=== PATIENT | female | born 1930 | race Caucasian/White ===

== ENCOUNTER → 2017-04-20 | Day surgery (SDC) | payer BC, OTHER ==
--- NOTE | 2017-04-19 08:11 | History and Physical ---
History & Physical Date Apr 19, 2017. Chief Complaint choking History of Present Illness The patient is a 86 year old female with complaints of recurrent choking episodes x 10 years Additional History Hepatic Disease: No Endocrine Disorder: No Kidney Disease: No Hypertension: Yes Heart Disease: No Bleeding Tendencies: No Infectious Diseases: No Allergies Uncoded Allergies: ENVIROMENTAL (Allergy, Intermediate, itchy eyes and nose, 03/15/15) Home Medications Scheduled Aspirin (Aspirin), 325 MG PO BID Celecoxib (Celebrex), 200 MG PO BID Nebivolol Hcl (Bystolic), 5 MG PO QAM Olmesartan/Hctz (Benicar Hct 20/12.5), 1 TAB PO DAILY Physical Examination Skin: warm/dry, no rash Eyes: normal inspection, EOMI, sclerae normal ENT: + pertinent finding (2 large cysts, left epigottis and left base of tongue ) Head: normocephalic, atraumatic Neck: supple, no adenopathy, trachea midline Respiratory/Chest: lungs clear, normal breath sounds, no respiratory distress Cardiovascular: regular rate, rhythm, no edema, no murmur Abdomen / GI: normal bowel sounds, non tender Back: normal inspection Extremities: normal inspection, normal range of motion Diagnosis large hypopharynx cysts Plan of Treatment direct laryngoscopy, excision
[2017-04-19 09:56] VITALS: BMI 31.0
--- NOTE | 2017-04-19 10:21 | PAT Medication Instructions ---
Service Date Apr 19, 2017. Current Home Medication List Aspirin (Aspirin Ec), 81 MG PO QAM Fluticasone Propionate (Nasal) (Flonase Allergy Relief), 2 SPRAYS RADHA BID Nebivolol Hcl (Bystolic), 5 MG PO QPM Olmesartan/Hctz (Benicar Hct 20/12.5), 1 TAB PO QAM Omeprazole (Prilosec), 20 MG PO PRN Medication Instructions For Your Scheduled Surgery - Hold the following medications the morning of surgery: Olmesartan/Hctz (Benicar Hct 20/12.5), 1 TAB PO QAM - Take the following medications the morning of surgery with a sip of water OTHERWISE NOTHING TO EAT OR DRINK AFTER MIDNIGHT: Aspirin (Aspirin Ec), 81 MG PO QAM Omeprazole (Prilosec), 20 MG PO PRN Fluticasone Propionate (Nasal) (Flonase Allergy Relief), 2 SPRAYS RADHA BID - Take the following medications as scheduled the night before surgery: Nebivolol Hcl (Bystolic), 5 MG PO QPM Fluticasone Propionate (Nasal) (Flonase Allergy Relief), 2 SPRAYS RADHA BID If you have any questions please call us at [phone] or [phone] or [phone]
[2017-04-19 11:50] LABS: BASO % 0.6 %; BASO ABS # 0.05 K/uL (0-0.2); COMPLETE YES; EOS % 2.4 %; HEMATOCRIT 37.1 % (37-47); IG% 0.2 %; LYMPH % 25.9 %; LYMPH ABS # 2.16 K/uL (1.2-3.4); MEAN CELL VOLUME 93.2 fL (80-100); MEAN CORPUSCULAR HEMOGLOBIN 30.7 pg (25-34); MEAN CORPUSCULAR HGB CONC 32.9 g/dl (32-36); MONO % 10.4 %; NEUT % 60.5 %; PLATELET COUNT 284 K/uL (130-400); RED BLOOD COUNT 3.98 M/uL (4.2-5.4); WHITE BLOOD COUNT 8.35 K/uL (4.8-10.8)
[2017-04-19 11:59] LABS: BUN/CREATININE RATIO 16.5 (10-20); CREATININE 1.1 mg/dl (0.60-1.20); POTASSIUM 4.3 mmol/L (3.5-5.1)
[~2017-04-20] VITALS: Ht 157.5 cm; Wt 78.4 kg
[~2017-04-20] MED LIST: ASPI81TA28 PO; ATROPINE SULFATE 0.1 MG/ML 5ML SYR IV PRN; BNC/20125 PO; BYS/5 PO; DEXAMETHASONE SOD INJ 4 MG/ML VIAL ONE; EpHEDrine SULFATE INJ 50 MG/ML AMP IV PRN; EpINEphrine HCL INJ 1 MG/ML 5ML SYRINGE ONE; FENTANYL CITRATE INJ 50 MCG/1 ML 2 ML VIAL IV PRN; FENTANYL CITRATE INJ 50 MCG/1 ML 2 ML VIAL ONE; FLUT0.15 NAE; GLYCOPYRROLATE INJ 0.2 MG/ML VIAL ONE; LACTATED RINGER'S 1000ML 1,000 ML IV SCH; LIDOCAINE HCL 2% 2 ML VIAL (20MG/ML) ONE; MIDAZOLAM HCL 1 MG/ML 2ML VIAL ONE; NEOSTIGMINE METHYLSULFATE 5 MG/5 ML SYR ONE; ONDANSETRON INJ 2 MG/ML 2 ML VIAL IV PRN; ONDANSETRON INJ 2 MG/ML 2 ML VIAL ONE; OXYCODONE/ACETAMINOPHEN 5-325 TAB PO PRN; PRLSR20 PO; PROPOFOL IV EMULSION 10 MG/ML 20 ML VIAL IV ONE; ROCURONIUM BROMIDE 10 MG/ML 5 ML VIAL ONE; SODIUM CHLORIDE 0.9% 1000ML 1,000 ML IV SCH; SUCCINYLCHOLINE CHLORIDE 20 MG/ML 10 ML VIAL IV ONE
[2017-04-20 10:09] VITALS: BP 145/64; PULSE 67; TEMP 36.8; O2SAT 97; Ht 157.5 cm; Wt 78.4 kg
--- NOTE | 2017-04-20 12:03 | History & Physical Bridge Note ---
H&P Re-Evaluation Bridge Note: I have examined the patient, reviewed the History & Physical and in the interval since the performance of the History & Physical I have noted the following changes of clinical significance: No changes noted
--- NOTE | 2017-04-20 13:26 | [facility] Operative Report ---
Operative Report Operative Date Apr 20, 2017. Pre-Operative Diagnosis large hypopharynx cysts Post-Operative Diagnosis large hypopharynx cysts Procedure(s) Performed Direct Laryngoscopy, excision Surgeon Dr Lyman Agricultural Mechanic Surgeon(s) None Estimated Blood Loss 30CC Findings 2 large cysts Specimens A. Epiglottis cyst B. Base of tongue cyst Drains none Anesthesia Gen. endotracheal Complication(s) None Disposition Recovery Room / PACU Indications 86-year-old lady with long history of choking spells with severe coughing spasms and a persistent lump sensation in her throat Description of Procedure The patient was brought to the operating room placed in supine position general endotracheal anesthesia was induced by Dr. Morse with some difficulty due to the large cysts. Suspension and microlaryngoscopy was performed with the Dedo laryngoscope visualizing the vallecula and piri form sinus areas and the endolarynx. Noted was a large cyst at the vallecular surface of the epiglottis and also at the left base of tongue. Both cysts were grasped with the various cup forceps and excised using the straight and up cutting scissors. Hemostasis was controlled using topical epinephrine on cottonoids pledgets. The pharynx was irrigated clean with saline, and the patient tolerated procedure well and was taken to recovery area. I attest to the content of the Intraoperative Record and any orders documented therein. Any exceptions are noted below.
--- NOTE | 2017-04-20 13:29 | Discharge Instructions-SurgCtr ---
Discharge Instructions Date of Service Apr 20, 2017. Visit Reason for Visit: Epiglotic Cysts x2 Discharge Discharge Diagnosis / Problem: same Discharge Goals Goal(s): Diagnostic testing, Therapeutic intervention Activity Recommendations Activity Limitations: resume your previous activity Anesthesia . Post Anesthesia Instructions: If you have had General Anesthesia or IV Sedation: * Do not drive today. * Resume driving when surgeon permits. * Do not make important decisions or sign legal documents today. * Call surgeon for: 1. Temperature elevations greater than 101 degrees F. 2. Uncontrollable pain. 3. Excessive bleeding. 4. Persistent nausea and vomiting. 5. Medication intolerance (nausea, vomiting or rash). * For nausea and vomiting use only clear liquids such as: tea, soda, bouillon until nausea subsides, then gradually increase diet as tolerated. * If you have any concerns or questions, call your surgeon's office. If physician is unavailable and it is an emergency, call 911 or go to the nearest emergency room. . Instructions / Follow-Up Instructions / Follow-Up Stay on a bland soft diet for 72 hours. Gargle with saline as needed. Used Tylenol or Advil for pain. Call Dr. Lyman cell phone [phone] for any problems or go to the emergency room Diet Recommendations Home Diet: no limitations Procedures Procedures Performed: Direct Laryngoscopy, excision Pending Studies Studies pending at discharge: no Medical Emergencies . Who to Call and When: Medical Emergencies: If at any time you feel your situation is an emergency, please call 911 immediately. . Non-Emergent Contact Non-Emergency issues call your: Primary Care Provider . . "Provider Documentation" section prepared by Giselle Lyman. . [place] Drug Monitoring Program Search Results: no issues identified
[2017-04-20 14:33] VITALS: BP 143/47; PULSE 65; TEMP 36.5; O2SAT 93
[2017-04-20 15:05] VITALS: BP 146/59; PULSE 60; O2SAT 97
[2017-04-20 15:30] VITALS: BP 141/60; PULSE 61; O2SAT 97
--- NOTE | 2017-04-20 15:48 | Anesthesiology Progress Note ---
Anesthesia Post Op Note Date & Time Apr 20, 2017 at 15:48 Vital Signs Pain Intensity: 0 Vital Signs Past 12 Hours Date Time Temp Pulse Resp B/P (MAP) Pulse Ox O2 Delivery O2 Flow Rate FiO2 04/20/17 14:33 36.5 65 18 143/47 93 Room Air 04/20/17 14:26 131/56 04/20/17 14:24 56 20 04/20/17 14:24 54 20 98 04/20/17 14:21 136/47 04/20/17 14:19 66 17 04/20/17 14:19 65 17 92 04/20/17 14:16 36.7 04/20/17 14:16 139/58 04/20/17 14:14 62 16 94 04/20/17 14:14 65 16 04/20/17 14:13 64 19 97 04/20/17 14:13 64 19 04/20/17 14:12 138/48 04/20/17 14:08 64 15 97 04/20/17 14:08 64 15 04/20/17 14:06 147/63 04/20/17 14:03 66 22 96 04/20/17 14:03 66 22 04/20/17 14:02 66 14 04/20/17 14:02 67 14 95 04/20/17 14:01 146/61 04/20/17 13:57 64 21 98 04/20/17 13:57 65 21 04/20/17 13:56 145/54 04/20/17 13:52 64 16 100 04/20/17 13:52 65 16 04/20/17 13:50 155/58 04/20/17 13:47 66 15 100 04/20/17 13:47 66 15 04/20/17 13:46 155/62 04/20/17 13:42 67 15 04/20/17 13:42 67 15 100 04/20/17 13:40 152/55 04/20/17 13:37 36.0 70 16 148/66 100 Mask 10 04/20/17 13:37 70 16 148/66 100 04/20/17 13:37 70 16 04/20/17 10:09 36.8 67 18 145/64 (91) 97 Room Air Notes Mental Status: alert / awake / arousable, participated in evaluation Pt Amnestic to Procedure: Yes Nausea / Vomiting: adequately controlled Pain: adequately controlled Airway Patency, RR, SpO2: stable & adequate BP & HR: stable & adequate Hydration State: stable & adequate Anesthetic Complications: no major complications apparent
== END | disposition home or self-care (01) ==
LOC: C.ACU 09:34
PROVIDERS: ATTEND Otolaryngology
DX: K09.8 Other cysts of oral region, not elsewhere classified (principal); R13.10 Dysphagia, unspecified; Z79.82 Long term (current) use of aspirin; M19.90 Unspecified osteoarthritis, unspecified site; K21.9 Gastro-esophageal reflux disease without esophagitis; K44.9 Diaphragmatic hernia without obstruction or gangrene; E66.9 Obesity, unspecified

== ENCOUNTER 2018-04-28 16:14 | Observation (INO) | payer BC ==
[~2018-04-28] VITALS: Ht 157.5 cm; Wt 78.0 kg
[~2018-04-28 16:14] MED LIST changes: -ATROPINE SULFATE 0.1 MG/ML 5ML SYR IV PRN; -DEXAMETHASONE SOD INJ 4 MG/ML VIAL ONE; -EpHEDrine SULFATE INJ 50 MG/ML AMP IV PRN; -EpINEphrine HCL INJ 1 MG/ML 5ML SYRINGE ONE; -FENTANYL CITRATE INJ 50 MCG/1 ML 2 ML VIAL IV PRN; -FENTANYL CITRATE INJ 50 MCG/1 ML 2 ML VIAL ONE; -GLYCOPYRROLATE INJ 0.2 MG/ML VIAL ONE; -LACTATED RINGER'S 1000ML 1,000 ML IV SCH; -LIDOCAINE HCL 2% 2 ML VIAL (20MG/ML) ONE; -MIDAZOLAM HCL 1 MG/ML 2ML VIAL ONE; -NEOSTIGMINE METHYLSULFATE 5 MG/5 ML SYR ONE; -ONDANSETRON INJ 2 MG/ML 2 ML VIAL IV PRN; -ONDANSETRON INJ 2 MG/ML 2 ML VIAL ONE; -OXYCODONE/ACETAMINOPHEN 5-325 TAB PO PRN; -PROPOFOL IV EMULSION 10 MG/ML 20 ML VIAL IV ONE; -ROCURONIUM BROMIDE 10 MG/ML 5 ML VIAL ONE; -SODIUM CHLORIDE 0.9% 1000ML 1,000 ML IV SCH; -SUCCINYLCHOLINE CHLORIDE 20 MG/ML 10 ML VIAL IV ONE
[2018-04-28 17:55] VITALS: BP 150/69; PULSE 72; TEMP 36.7; O2SAT 92; Ht 157.5 cm; Wt 78.0 kg
[2018-04-28] MEDS ORDERED: PANTOprazole SOD 40 MG TAB PO PRN (18:00)
[2018-04-28] MEDS ORDERED: ACETAMINOPHEN 325 MG TAB PO PRN (18:00)
[2018-04-28] MEDS ORDERED: ONDANSETRON INJ 2 MG/ML 2 ML VIAL IV PRN (18:00)
[2018-04-28] MEDS ORDERED: PHARMACIST DISCHARGE MED REC CONSULT PRN (18:00)
[2018-04-28] MEDS ORDERED: MAGNESIUM HYDROXIDE SUSP 30 ML UDC PO PRN (18:00)
--- NOTE | 2018-04-28 19:03 | History and Physical ---
History & Physical Date & Time of Service: Apr 28, 2018 at 18:43 Chief Complaint: Tia, R/O Stroke Primary Care Physician: Nick Ma M.D. History of Present Illness Source: patient, spouse 87 y/o F who was transferred here from the ED at [facility] for possible CVA. Pt states that she has not felt well since about . She noted that she was lightheaded and very fatigued. Her BP was low pre-AM meds, so she did not take them. She had an appt at [facility] which she did keep, but did not do much else due to not feeling herself and intermittent lightheadedness. This continued through the weekend. Sunday night she was at a neighborhood picnic. She was sitting at a table talking with friends when her was alerted that pt had suddenly stopped talking and was slumped to the R. came over to assist pt and noted that her eyes were quite large and when he rubbed her back, she was cold and clammy. Pt had two episodes of emesis as well. Pt states she was aware of her surroundings and trying to speak, but could not. She had more intense lightheadedness as well. Her and others assisted her back to her home. She was able to walk, but not without assistance and feels she would have fallen without help. She did understand simple commands like the instruction to walk back to her home. When she got back into the house, she did start to answer basic yes/no questions but her speech was slurred. No facial droop. EMS was called. Pt states she was told her vitals were normal and at that time she was still lightheaded but was back to her baseline. She noted a loud noise behind her L ear that she has difficulty describing and has since resolved. She declined transport to the ED last night, however today she had ongoing lightheadedness so she decided to go to the ED for further exam. Pt states that "I just don't feel normal in my head right now". She notes ongoing lightheadedness. No vision changes. Pt denies fever, SOB, chest pain, abd pain, n/v/c/d, LE pain or swelling. She has never had an episode like this prior. All sx other than the lightheadedness lasted about 15 minutes. She has been eating well otherwise. Pt states she took aspirin s/p hip and knee replacement, but does not currently take aspirin. 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 She has no pain related to this. At some point she did have feculent vaginal discharge, however that has resolved. Now she has only mucous type discharge and itching. Currently plan is conservative management with c-scope on 06/28/18 unless sx change. Per ED physician at [place], [place] head WNL Past Medical/Surgical History HTN Bowel/bladder fistula Family History Brother: hx of hemorrhagic stroke Social History Smoking Status: Never Smoker Alcohol Use: occasionally (once a month at most) Drug Use: none Allergies Coded Allergies: NO KNOWN DRUG ALLERGIES (Unverified Allergy, Unknown, NONE, 04/19/17) Ragweed (Unverified Allergy, Unknown, TREES,GRASS-ITCHY EYES RUNNY NOSE, ) Home Medications Scheduled Aspirin (Aspirin Ec), 81 MG PO QAM Fluticasone Propionate (Nasal) (Flonase Allergy Relief), 2 SPRAYS RADHA BID Nebivolol Hcl (Bystolic), 5 MG PO QPM Olmesartan/Hctz (Benicar Hct 20/12.5), 1 TAB PO QAM Omeprazole (Prilosec), 20 MG PO PRN Review of Systems Pertinent positives and negatives reviewed in HPI--all others negative Physical Exam Vital Signs Date Time Temp Pulse Resp B/P (MAP) Pulse Ox O2 Delivery O2 Flow Rate FiO2 04/28/18 17:55 36.7 72 18 150/69 92 Room Air General Appearance: WD/WN, no apparent distress Head: normocephalic, atraumatic Eyes: normal inspection, PERRL, EOMI, sclerae normal Respiratory/Chest: normal breath sounds, no respiratory distress Cardiovascular: regular rate, rhythm, no edema Abdomen/GI: non tender, soft Extremities/Musculoskelatal: no calf tenderness, no pedal edema Neurologic/Psych: surveillance systems engineer II-XII nml as tested, alert, normal mood/affect, oriented x 3, + pertinent finding (= skating rink manager strength 5/5, LE strength against resistance 5/5 in all planes) Skin: normal color, warm/dry Diagnostics Laboratory Results Results Past 24 Hours Test 04/28/18 17:51 Range/Units Diagnostic Radiology CT head reported neg, read pending CXR reported neg, read pending Impression Assessment and Plan 87 y/o F who was admitted for observation for sx concerning for CVA vs TIA CVA vs TIA: most sx were sudden in onset and resolution, however lingering lightheadedness and fatigue building up to and after are concerning CT head neg, MRI/MRA pending CBC, WBC WNL Trop neg x1 TSH WNL Neuro c/s pending Started aspirin 81mg Lipid panel, A1c pending PT/OT/speech pending t/c ECHO if concerns on further imaging HTN: stable, continue home meds as BP allows Other: Full code although states she does not want prolonged life support Lovenox for DVT proph AHA diet if passes bedside swallow Advanced Directives Existing Living Will: Yes Existing Power of Cigar Tobacco Processing Supervisor: Yes Resuscitation Status VTE Prophylaxis Will order VTE Prophylaxis: Yes Additional Copies To Nick Ma M.D.
[2018-04-28 19:51] VITALS: BP 117/68; PULSE 56; TEMP 36.6; O2SAT 97
[2018-04-28] MEDS ORDERED: IV FLUIDS COMPLETED PRN (20:00)
[2018-04-28] MEDS ORDERED: FLUCONAZOLE 100 MG TAB PO ONE (21:15)
[2018-04-28] MEDS: FLUTICASONE PROPIONATE NA SPR 16 GM BTL NAE SCH (21:15)
[2018-04-28] MEDS ORDERED: NURSING VERBAL MED ORDER ONE (21:15)
[2018-04-28 23:25] VITALS: BP 133/70; PULSE 64; TEMP 36.8; O2SAT 95
[2018-04-29] MEDS ORDERED: COUGH DROP (SUGAR FREE) LOZ 24 LOZ/1 BOX LOZ PRN (01:15)
[2018-04-29 01:35] LABS: CALCIUM 8.5 mg/dl (8.5-10.1); CREATININE 1.11 mg/dl (0.60-1.20); POTASSIUM 3.8 mmol/L (3.5-5.1)
[2018-04-29 03:30] VITALS: BP 152/76; PULSE 66; TEMP 36.6; O2SAT 94
--- NOTE | 2018-04-29 06:53 | DIAGNOSTIC IMAGING REPORT ---
BRAIN COMBO CLINICAL HISTORY: Stroke mental status change COMPARISON STUDY: No previous studies for comparison. TECHNIQUE: Utilizing a 1.5 Tawana magnet and dedicated coil, multiplanar, multiecho imaging of the brain was performed pre and postcontrast administration. IV administration of 8 mL of Gadavist contrast was uneventful. FINDINGS: Diffusion-weighted images are considered negative for an acute ischemic event. Age-related chronic small vessel change and atrophy. The ventricular systems is midline. The basilar cisterns are unremarkable. Postcontrast images are considered negative for an enhancing lesion. IMPRESSION: Normal study. Age-related atrophy and chronic small vessel change. The above report was generated using voice recognition software. It may contain grammatical, syntax or spelling errors. Electronically signed by: Evgeny Gutiérrez M.D. 04/29/2018 6:52 AM Dictated Date/Time: 04/29/2018 6:50 AM
[2018-04-29 07:06] LABS: HEMOGLOBIN A1C 5.9 % (4.5-5.6)
[2018-04-29] MEDS: FLUTICASONE PROPIONATE NA SPR 16 GM BTL NAE SCH (07:22)
[2018-04-29 07:31] VITALS: BP 135/69; PULSE 68; TEMP 36.9; O2SAT 97
[2018-04-29 07:32] LABS: CHOLESTEROL 152 mg/dl (0-200); LDL CHOLESTEROL CALCULATED 84 mg/dl
--- NOTE | 2018-04-29 07:34 | DIAGNOSTIC IMAGING REPORT ---
MRA NECK COMBO CLINICAL HISTORY: 87 years-old Female presenting with episode of aphasia and dizziness, vomiting. TECHNIQUE: MR angiography of the neck was performed before and after the administration of intravenous contrast. 3-D volumetric and/or maximum intensity projection (MIP) images were subsequently reconstructed for review. IV contrast: 7.5 mL of Gadavist. Stenosis measurements were based on NASCET-like criteria. COMPARISON: None. FINDINGS: Localizer images: Unremarkable. Aortic arch: Atherosclerosis of the three-vessel aortic arch. Innominate artery: Patent. Right common carotid artery: Patent. Right internal and external carotid arteries: Right carotid bifurcation patent. Right internal and external carotid arteries widely patent. Minimal irregularity of the distal right ICA (series 1401 image [id number]), likely due to tortuosity. Left common carotid artery: Patent. Left internal and external carotid arteries: Left carotid bifurcation patent. Left internal and external carotid arteries widely patent. Left subclavian artery: Patent. Vertebral arteries: Right dominant vertebral artery. Origin of the left vertebral artery excluded from the [id number]. Origin of the right vertebral artery widely patent. Remaining courses of the bilateral vertebral arteries patent. Other: Limited intracranial evaluation within normal limits. Soft tissues of the neck normal allowing for the phase of contrast. IMPRESSION: 1. No dissection, significant stenosis, or focal vessel occlusion. Electronically signed by: Eric Rosas M.D. 04/29/2018 7:32 AM Dictated Date/Time: 04/29/2018 6:55 AM
--- NOTE | 2018-04-29 07:59 | DIAGNOSTIC IMAGING REPORT ---
MR ANGIOGRAM OF THE BRAIN CLINICAL HISTORY: Strokelike symptoms. COMPARISON STUDY: MRI of the brain performed concurrently on 04/29/2018. TECHNIQUE: 3-D [id number] MR angiography of the intracranial circulation is performed. 3-D tumble views are created and assessed. IV contrast was not administered for this examination. FINDINGS: The internal carotid arteries are widely patent bilaterally, as are the anterior and middle cerebral arteries. The vertebrobasilar system and posterior cerebral arteries are widely patent. The right vertebral artery is dominant. The left vertebral artery is diminutive. There is no aneurysm, high-grade stenosis, or focal vessel cutoff seen throughout the intracranial circulation. The brain parenchyma is normal as visualized. IMPRESSION: Unremarkable MR angiogram of the brain. Electronically signed by: Bart Mcclellan M.D. 04/29/2018 7:58 AM Dictated Date/Time: 04/29/2018 7:08 AM
[2018-04-29] MEDS ORDERED: OLMESARTAN PO SCH (09:00)
[2018-04-29] MEDS ORDERED: HCTZ PO SCH (09:00)
[2018-04-29] MEDS ORDERED: OLMESARTAN MEDOXOMIL 20 MG TAB PO SCH (09:00)
[2018-04-29] MEDS ORDERED: HYDROCHLOROTHIAZIDE 25 MG TAB PO SCH (09:00)
[2018-04-29] MEDS ORDERED: ASPIRIN 81 MG ECTAB PO SCH (09:00)
--- NOTE | 2018-04-29 09:53 | Neurology Consultation ---
Neurology Consultation Date of Consultation: Apr 29, 2018. Attending Physician: Vega Herman D.O. Primary Care Physician: Nick Ma M.D. Reason for Consultation: Patient is an 87-year-old, who was asked to see the request of Dr. Marie, for neurologic consultation regarding episode of speech and altered consciousness issues. History of Present Illness Source: patient, caregiver, clinic records, hospital records Patient has no history of stroke but does carry a history of high blood pressure. She does not have heart disease or diabetes. 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 She was in her usual state of health when on April 25, she noted that she was lightheaded fatigued throughout the day. She had no syncope, weakness, speech problems, or vision problems. She had no balance issues or incontinence. She had no pain or headaches. On April 26 she felt the same with no new problems. She woke up on April 27 with the same fatigue and lightheaded symptoms. Around 4 o'clock in the afternoon on April 27, she attended a picnic. Apparently she suddenly stopped talking and was slumping to the right she sort of remembers trying to speak but could not get the words out but was hazy with her memory for the next period of time. Apparently she walked on her own power into the house and the ambulance came. She vomited twice prior to their arrival. They noted her speech slurred but by the time the EMS personnel arrived, she was back to baseline. She did not want to go to the emergency room. She woke up on April 28 feeling somewhat lightheaded and ended up going to the [place] [facility]. A CT scan of the head was unremarkable. She was transferred to our institution. At 1755 hours, temperature 36.7, pulse 72 and regular, respiratory rate 18, blood pressure 150/89, and O2 saturation 92%. Neurologic examination was described as unremarkable. MRI of the brain showed no acute stroke. She had mild old small vessel ischemic changes of a nonspecific nature and mild generalized atrophy consistent with age. MR angiography of the neck and head were unremarkable with no significant stenoses. Fasting lipid profile showed an LDL of 84 and a cholesterol of 152. Hemoglobin A1c was 5.9. She had no further events overnight and today she feels back to baseline. She denies lightheadedness fatigue, speech issues, weak or numb feelings in the limbs, pain in the head her spine, confusion, vision issues or other problems including incontinence. Past Medical/Surgical History Hypertension Left bundle-branch block Gastroesophageal reflux disease Bowel/bladder fistula Polyneuropathy Post hysterectomy Tonsillectomy H to Cholecystectomy 2011 Right total hip replacement February of 2015 Left total knee replacement February of 2014 Hypopharynx cyst removed April 2007 Family History Patient's mother at a 106 years old without significant problems. Father age 65 from black lung complications (loan examiner) She had a brother who of her hemorrhagic stroke in his 80s Social History Patient has never used tobacco products. She only rarely has a drink of alcohol socially. Patient used to work for [employer]. She then worked in a [employer]. She retired around age 63 Smoking Status: Never smoker Smokeless Tobacco Use: No Alcohol Use: socially Drug Use: none Marital Status: Housing Status: lives alone Occupation Status: retired Allergies Coded Allergies: NO KNOWN DRUG ALLERGIES (Unverified Allergy, Unknown, NONE, 04/19/17) Ragweed (Unverified Allergy, Unknown, TREES,GRASS-ITCHY EYES RUNNY NOSE, ) Current Inpatient Medications Current Inpatient Medications Medications (Trade) Dose Ordered Sig/Marcelo Route Start Time Stop Time Status Last Admin Dose Admin Miscellaneous Information (Pharmacist Discharge Med Rec Consult) 1 ea UD PRN N/A 04/28/18 18:00 05/28/18 17:59 Acetaminophen (Tylenol Tab) 650 mg Q4H PRN PO 04/28/18 18:00 05/28/18 17:59 Magnesium Hydroxide (Milk Of Magnesia Susp) 30 ml Q12H PRN PO 04/28/18 18:00 05/28/18 17:59 Ondansetron HCl (Zofran Inj) 4 mg Q6H PRN IV 04/28/18 18:00 05/28/18 17:59 Aspirin (Ecotrin Tab) 81 mg QAM PO 04/29/18 09:00 05/29/18 08:59 04/29/18 07:22 81 MG Fluticasone Propionate (Flonase Nasal [place]) 1 sprays BID RADHA 04/28/18 21:00 05/28/18 20:59 04/29/18 07:22 1 SPRAYS Miscellaneous Information (Order Awaiting Action) 1 ea QS N/A 04/29/18 00:00 05/29/18 00:00 Pantoprazole Sodium (Protonix Tab) 40 mg DAILY PRN PO 04/28/18 18:00 05/28/18 17:59 Olmesartan (Benicar Tab) 20 mg QAM PO 04/29/18 09:00 05/29/18 08:59 04/29/18 07:21 20 MG Hydrochlorothiazide (Hydrochlorothiazide Tab) 12.5 mg QAM PO 04/29/18 09:00 05/29/18 08:59 04/29/18 07:20 12.5 MG Miscellaneous (Iv Fluids Completed) 1 ea PRN PRN N/A 04/28/18 20:00 04/28/19 19:59 Menthol (Nice Philomena) 1 philomena PRN PRN PHILOMENA 04/29/18 01:15 05/29/18 01:14 Review of Systems Constitutional: No weakness, No fatigue Eyes: No worsening of vision, No diplopia ENT: No sore throat, No trouble swallowing Respiratory: No cough, No shortness of breath Cardiovascular: No chest pain, No palpitations Abdomen: No pain, No nausea Musculoskeletal: No joint pain, No muscle pain Genitourinary - Female: No dysuria, No urinary incontinence Neurologic: No memory loss, No weakness, No numbness/tingling, No vertigo, No balance problems Psychiatric: No depression symptoms, No anxiety Endocrine: No fatigue Hematologic / Lymphatic: No abnormal bleeding/bruising Integumentary: No rash Allergic / Immunologic: No hives Physical Exam Vital Signs (Past 24 Hrs): Date Time Temp Pulse Resp B/P (MAP) Pulse Ox O2 Delivery O2 Flow Rate FiO2 04/29/18 08:00 Room Air 04/29/18 07:31 36.9 68 18 135/69 (91) 97 04/29/18 03:30 36.6 66 20 152/76 (101) 94 Room Air 04/28/18 23:25 36.8 64 18 133/70 (91) 95 Room Air 04/28/18 20:00 Room Air 04/28/18 19:51 36.6 56 18 117/68 (84) 97 Room Air 04/28/18 17:55 36.7 72 18 150/69 92 Room Air Patient is right-handed. The patient is awake and alert. Speech is normal without aphasia or dysarthria. Mentation and thought processes are intact with full orientation and normal fund of knowledge. Mood and affect are normal and appropriate. Appearance and grooming are normal. Long and short-term memory are intact. The discs are sharp with positive venous pulsations. There are no exudates, hemorrhages, or blood vessel changes seen. Pupils are 3mm bilaterally and reactive to light. Extraocular eye muscles are intact without nystagmus. Visual acuity and visual pina seem normal grossly to confrontation. There are no deficits to sensation of the face bilaterally. Corneal reflexes are positive bilaterally. Facial strength and symmetry is normal bilaterally. Hearing seems intact grossly to voice and finger rub. Palate moves well without asymmetry. There is normal sternocleidomastoid and trapezius strength bilaterally. Tongue is midline with good strength bilaterally. Neck is with full range of motion without discomfort. There are no cervical bruits. There are no cranial or ocular bruits. Heart is without murmur. Cervical, thoracic, and lumbar spine are nontender to palpation. Gait is normal. There is good arm swing, turn, stance, and balance. With outstretched arms there is no drift. There are no resting, postural, or action tremors. There is no ataxia with [id number] testing. There is good facility in the hands. There are no abnormal involuntary movements noted. Motor strength is 5/5 diffusely in the arms bilaterally including deltoids, biceps, brachioradialis, wrist flexors and extensors, electrical assistant, and intrinsic hand muscles. Motor strength is 5/5 diffusely in the legs bilaterally including hip flexors, quadriceps, hamstring, gastrocnemius, tibialis anterior, tibialis posterior, and peroneii muscles bilaterally. Toe extensors are normal and there is good bulk in the extensor digitorum brevis muscle bilaterally. The limbs have good tone without rigidity or spasticity, and there is no atrophy noted. Muscle bulk is normal, there is no tenderness, no myotonia noted to percussion, and no fasciculations seen. Sensory examination is intact to pin and touch throughout , except for some decreased pin and touch in her toes bilaterally Reflexes are 1/4 in the biceps, triceps, brachioradialis, quadriceps, and Achilles tendons bilaterally. Toes are downgoing with plantar stimulation bilaterally. Peripheral pulses are present and of normal quality distally in all four limbs. There is no peripheral edema noted. Laboratory Results Past 24 Hours: 04/29/18 01:06 Test 04/28/18 23:40 04/29/18 01:06 04/29/18 06:40 Estimated Average Glucose 123 mg/dl Hemoglobin A1c 5.9 % (4.5-5.6) Anion Gap 7.0 mmol/L (3-11) Est Creatinine Clear Calc Drug Dose 35.3 ml/min Estimated GFR () 52.1 Estimated GFR (Non- 44.9 BUN/Creatinine Ratio 23.3 (10-20) Calcium Level 8.5 mg/dl (8.5-10.1) Troponin I < 0.015 ng/ml (0-0.045) Triglycerides Level 74 mg/dl (0-150) Cholesterol Level 152 mg/dl (0-200) HDL Cholesterol 53 mg/dl LDL Cholesterol, Calculated 84 mg/dl VLDL Cholesterol, Calculated 15 mg/dl Cholesterol/HDL Ratio 2.9 Imaging BRAIN COMBO CLINICAL HISTORY: Stroke mental status change COMPARISON STUDY: No previous studies for comparison. TECHNIQUE: Utilizing a 1.5 Tawana magnet and dedicated coil, multiplanar, multiecho imaging of the brain was performed pre and postcontrast administration. IV administration of 8 mL of Gadavist contrast was uneventful. FINDINGS: Diffusion-weighted images are considered negative for an acute ischemic event. Age-related chronic small vessel change and atrophy. The ventricular systems is midline. The basilar cisterns are unremarkable. Postcontrast images are considered negative for an enhancing lesion. IMPRESSION: Normal study. Age-related atrophy and chronic small vessel change. The above report was generated using voice recognition software. It may contain grammatical, syntax or spelling errors. Electronically signed by: Evgeny Gutiérrez M.D. 04/29/2018 6:52 AM Impression 1. Episode of speech arrest/word-finding difficulties, altered responsiveness April 27 The patient did not have a stroke. This probably represents a TIA , although transient neurologic symptoms from decreased cerebral perfusion in general could create this picture as well. She was having lightheadedness and fatigue but apparently, by the time EMS arrived, her vital signs were described as normal. Currently she is doing well with no symptoms and is back to baseline. NIH stroke scale equals 0 MRI of the brain shows no acute stroke and only mild old cerebral ischemia ( consistent with age and hypertension history). 2. History of generalized polyneuropathy but no significant changes on exam except for some decreased sensation to pin in her toes. 3. Lightheadedness and fatigue for the last several days currently resolved. Plan 1. I would initiate 81 mg aspirin tablet daily for TIA prevention. 2. Echocardiogram if not performed 3. Hemoglobin A1c, fasting glucose, CBC, TSH, B12 should be considered 4. Increase activity as able. There is no need for physical, occupational, or speech therapy as she is back to baseline. 5. Because of her advanced age, she is not a high-dose statin candidate. 6. I see no need for additional neurologic testing or treatment. Overall, I spent a total of 60 minutes with this case including records review, review of MRI films, direct evaluation the patient at bedside, and discussion of the case with the patient, clinical staff, and Dr. Herman including differential diagnosis and treatment options.
[2018-04-29] MEDS ORDERED: PERFLUTREN LIPID MICROSPHERE (DEFINITY) IV ONE (12:03)
--- NOTE | 2018-04-29 12:39 | Discharge Instructions ---
Discharge Instructions Date of Service Apr 29, 2018. Admission Reason for Admission: TIA Discharge Discharge Diagnosis / Problem: TIA Discharge Goals Goal(s): Decrease discomfort, Improve function, Improve disease control Activity Recommendations Activity Limitations: resume your previous activity . Instructions / Follow-Up Instructions / Follow-Up Medications - Aspirin: please take 81mg daily for stroke prevention TIA: MRI brain does not show any acute ischemic stroke MR angiography of the head and neck normal LDL cholesterol low at 84, HbA1c 5.9 so no evidence of diabetes all symptoms resolved main recommendation from Dr. Lugo is to take aspirin daily for stroke prevention can be d/c to home follow up with your primary care doctor in one week Generalized anxiety disorder as we discussed, I would recommend that you reconsider taking the medication that was prescribed by family physician suspect that it was an SSRI if it was a once daily medication in the mean time, I will prescribe you Ativan 0.5mg to only take as needed, just once in 24 hour period as we discussed, Ativan is not ideal skilled nursing, but can help in the short term while you are dealing with external stress please discuss further with your family doctor Risk Factors for Stroke: You can reduce your chances of stroke by working with your medical provider to adopt a healthy lifestyle. Some specific ways to lower your chance of stroke are: * If you are a smoker, now is the time to stop smoking cigarettes * If you are diabetic, improve the control of your blood sugars * Avoid excessive amounts of alcohol * Control high blood pressure * Lose weight if you are overweight * Be sure to lead an active lifestyle * Eat a healthy diet low in salt, cholesterol and fat You should know about other risk factors for stroke that you are unable to control. These include: * Age 55 years or older * Male gender * Certain racial groups: , or / * Family History of Stroke, Mini stroke or Heart Attack * Sickle Cell Disease Follow Up: It is important for you to keep your follow up appointments with your medical provider. Current Hospital Diet Patient's current hospital diet: Regular Diet Discharge Diet Recommended Diet: Regular Diet Pending Studies Studies pending at discharge: no Laboratory Results Hemoglobin A1c Test 04/28/18 23:40 Range/Units Estimated Average Glucose 123 mg/dl Hemoglobin A1c 5.9 H 4.5-5.6 % Lipid Panel Test 04/29/18 06:40 Range/Units Triglycerides Level 74 0-150 mg/dl Cholesterol Level 152 0-200 mg/dl HDL Cholesterol 53 mg/dl Cholesterol/HDL Ratio 2.9 LDL Cholesterol, Calculated 84 mg/dl Medical Emergencies . Who to Call and When: Medical Emergencies: Call 911 immediately if you experience any of the following warning signs and symptoms of Stroke: * Sudden numbness or weakness of the face, arm or leg, especially on one side of the body * Sudden confusion, trouble speaking or understanding * Sudden trouble seeing in one or both eyes * Sudden trouble walking, dizziness, loss of balance or coordination * Sudden severe headache with no cause Do not delay calling 911 if you experience any warning signs or symptoms of a stroke. Delay in seeking medical attention may affect what treatments can be given to you. . Non-Emergent Contact Non-Emergency issues call your: Primary Care Provider Call Non-Emergent contact if: you have any medication questions . . "Provider Documentation" section prepared by Vega Herman. . Stroke Core Measures Reason no t-PA for Stroke: Treatment not indicated Reason no antithrom by day 2: Treatment provided - N/A Reason no antithrom at D/C: Treatment provided - N/A Reason no statin at D/C: Treatment not indicated (due to patient's age) Reason no anticoag w/a fib: Treatment not indicated [place] Drug Monitoring Program Search Results: no issues identified
[2018-04-29] MEDS ORDERED: LORA-741 PO (12:57)
--- NOTE | 2018-04-29 12:57 | ECHOCARDIOGRAM REPORT ---
*NOTICE TO RECEIVING CONSTITUTION PARTY AGENCY This information is strictly Confidential and protected under [place] law. [place] law prohibits you from making any further disclosure of this information unless further disclosure is expressly permitted by the written consent of the person to whom it pertains or is authorized by law. A general authorization for the release of medical or other information is not sufficient for this purpose. Hospital accepts no responsibility if the information is made available to any other person, INCLUDING THE PATIENT. Interpretation Summary * Name: LILIAN PENA Study Date: 04/29/2018 10:39 AM BP: 135/69 mmHg * Patient Location: C.2T\S\S235\S\1 HR: 68 * : 1930 (M/d/yy) Gender: Female Height: 62 in * Age: 87 yrs Ethnicity: [place] Weight: 171 lb * Ordering Physician: Vega Herman * Performed By: Ilana Carney RDCS * * Reason For Study: CEREBRAL ISCHEMIA/EMBOLUS * BSA: 1.8 m2 * -- Conclusions -- * 1. Normal LV size, mild concentric LVH. * 2. LVEF 60-65%. No regional wall motion abnormalities. * 3. Normal RV size and function. * 4. Mild aortic regurgitation. * 5. Negative saline contrast study for interatrial shunt. * 6. No prior studies for comparison. Procedure Details * A complete two-dimensional transthoracic echocardiogram was performed (2D, M-mode, Doppler and color flow Doppler). * A saline contrast injection was performed to assess for cardiac shunting. * The injection was performed through an intravenous line in the right arm. * The attending nurse who injected the saline contrast was ARACELI MUSA RN. * A total of 20 cc of agitated saline was given. * A contrast injection of Definity was performed to improve assessment of LV function. * Contrast was injected into an intravenous site in the right arm. * One vial of Definity ultrasound contrast was diluted in normal saline to a total volume of 10 ml. A total of '2.5' ml of solution was administered during imaging. * Lot # [id number] of Definity utilized for procedure. * Expiration date 04/04. * The attending nurse who injected the contrast agent was ARACELI MUSA RN. Left Ventricle * The left ventricle is grossly normal size. * There is mild concentric left ventricular hypertrophy. * Ejection Fraction = 60-65%. Atria * The left atrial size is normal. * Right atrium not well visualized. * Right atrial size is normal. * Injection of contrast documented no interatrial shunt. Mitral Valve * The mitral valve is grossly normal. * There is no mitral valve stenosis. * There is trace mitral regurgitation. Tricuspid Valve * There is trace tricuspid regurgitation. Aortic Valve * The aortic valve opens well. * The aortic valve is trileaflet. * No hemodynamically significant valvular aortic stenosis. * Mild aortic regurgitation. Pulmonic Valve * The pulmonary valve is inadequately visualized, but the Doppler data is adequate for interpretation. * There is no pulmonic valvular stenosis. * Trace pulmonic valvular regurgitation. Great Vessels * Borderline dilated ascending aorta. Pericardium/Pleural * There is no pericardial effusion. MMode 2D Measurements and Calculations IVSd 1.5 cm IVSs 1.6 cm LVIDd 4.1 cm LVIDs 2.7 cm LVPWd 0.82 cm LVPWs 1.7 cm IVS/LVPW 1.8 FS 33.8 % EDV(Teich) 74.5 ml ESV(Teich) 27.4 ml EF(Teich) 63.2 % EDV(cubed) 69.3 ml ESV(cubed) 20.1 ml EF(cubed) 71.0 % % IVS thick 5.2 % % LVPW thick 102.0 % LV mass(C)d 165.0 grams LV mass(C)dI 92.3 grams/m\S\2 LV mass(C)s 160.8 grams LV mass(C)sI 89.9 grams/m\S\2 SV(Teich) 47.1 ml SI(Teich) 26.3 ml/m\S\2 SV(cubed) 49.2 ml SI(cubed) 27.5 ml/m\S\2 ACS 0.95 cm LA dimension 3.6 cm asc Aorta Diam 3.7 cm LVOT diam 1.9 cm LVOT area 2.7 cm\S\2 LVAd ap4 30.7 cm\S\2 LVLd ap4 7.7 cm EDV(MOD-sp4) 100.7 ml EDV(sp4-el) 104.4 ml LVAs ap4 17.7 cm\S\2 LVLs ap4 6.7 cm ESV(MOD-sp4) 38.6 ml ESV(sp4-el) 40.1 ml EF(MOD-sp4) 61.7 % EF(sp4-el) 61.6 % LVAd ap2 29.7 cm\S\2 LVLd ap2 8.2 cm EDV(MOD-sp2) 92.2 ml EDV(sp2-el) 90.9 ml LVAs ap2 16.1 cm\S\2 LVLs ap2 7.0 cm ESV(MOD-sp2) 31.6 ml ESV(sp2-el) 31.6 ml EF(MOD-sp2) 65.7 % EF(sp2-el) 65.3 % LVLd %diff 6.9 % EDV(MOD-bp) 97.7 ml LVLs %diff 4.6 % ESV(MOD-bp) 35.9 ml EF(MOD-bp) 63.3 % SV(MOD-sp4) 62.1 ml SI(MOD-sp4) 34.7 ml/m\S\2 SV(MOD-sp2) 60.6 ml SI(MOD-sp2) 33.9 ml/m\S\2 SV(MOD-bp) 61.8 ml SI(MOD-bp) 34.6 ml/m\S\2 SV(sp4-el) 64.3 ml SI(sp4-el) 36.0 ml/m\S\2 SV(sp2-el) 59.3 ml SI(sp2-el) 33.2 ml/m\S\2 Doppler Measurements and Calculations MV E max johanne 82.0 cm/sec MV A max johanne 89.0 cm/sec MV E/A 0.92 MV dec time 0.29 sec Ao V2 max 140.2 cm/sec Ao max PG 7.9 mmHg Ao max PG (full) 4.4 mmHg TERI(V,A) 1.8 cm\S\2 TERI(V,D) 1.8 cm\S\2 AI max johanne 350.4 cm/sec AI max PG 49.1 mmHg AI dec slope 171.5 cm/sec\S\2 AI P1/2t 598.4 msec LV V1 max PG 3.4 mmHg LV V1 max 92.8 cm/sec PA V2 max 78.2 cm/sec PA max PG 2.4 mmHg PI end-d johanne 73.3 cm/sec TR max johanne 231.2 cm/sec
[2018-04-29 13:26] VITALS: BP 135/69; PULSE 68; TEMP 36.9; O2SAT 97
--- NOTE | 2018-04-29 14:05 | Pharmacy Progress Note ---
Pharmacist Stroke Counseling Date of Service Apr 29, 2018. Scope Pharmacy has been consulted to provide medication discharge counseling for this patient admitted with transient ischemic attack as per the Pharmacist Discharge Counseling for Stroke Patients Protocol. Medications on Discharge New Medications: Lorazepam (Ativan) 0.5 Mg Tab 0.5 MG PO DAILY PRN for Anxiety/Insomnia, #14 TAB Continued Medications: Aspirin (Aspirin Ec) 81 Mg Tab 81 MG PO QAM Fluticasone Propionate (Nasal) (Flonase Allergy Relief) 50 Mcg/Act Spr 2 SPRAYS RADHA BID Nebivolol Hcl (Bystolic) 5 Mg Tab 5 MG PO QPM, TAB Olmesartan/Hctz (Benicar Hct 20/12.5) Tab 1 TAB PO QAM, TAB Omeprazole (Prilosec) 20 Mg Capcr 20 MG PO PRN, CAP Action The above medications, specifically ones for prophylaxis, have been reviewed in detail with the patient prior to discharge. This includes indication, common adverse reactions, drug interactions, and medication administration. Medication counseling has been employed using the teach-back method to ensure understanding. Outcome The patient has demonstrated understanding of the medications. Please note, they are aware that the pharmacist will call them within 72 hours post-discharge to confirm that the appropriate medications are being taken and answer any further medication related questions the patient might have at that time. 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 She will check with the doctors there is see if she should. She does not take Prilosec. Thank you for allowing pharmacy to be involved in the care of this patient. Please call [phone] or [phone] with any additional questions
--- NOTE | 2018-04-29 22:42 | Discharge Summary ---
Discharge Summary Date of Service Apr 29, 2018. Discharge Summary Admission Date: Apr 28, 2018 at 17:34 Discharge Date: Apr 29, 2018 Discharge Disposition: Home Principal Diagnosis: TIA Problems/Secondary Diagnoses: Generalized anxiety disorder Hypertension Procedures: none Consultations: Neurology Medication Reconciliation New Medications: Lorazepam (Ativan) 0.5 Mg Tab 0.5 MG PO DAILY PRN for Anxiety/Insomnia, #14 TAB Continued Medications: Aspirin (Aspirin Ec) 81 Mg Tab 81 MG PO QAM Fluticasone Propionate (Nasal) (Flonase Allergy Relief) 50 Mcg/Act Spr 2 SPRAYS RADHA BID Nebivolol Hcl (Bystolic) 5 Mg Tab 5 MG PO QPM, TAB Olmesartan/Hctz (Benicar Hct 20/12.5) Tab 1 TAB PO QAM, TAB Omeprazole (Prilosec) 20 Mg Capcr 20 MG PO PRN, CAP Discharge Exam Patient without any neurologic deficits today, NIH stroke scale 0. Patient seen and evaluated by Dr. Lugo, no further testing recommended, felt that patient could be discharged on aspirin. Recommended echo prior to discharge. Discussed plan with patient, she said she would take the aspirin as prescribed. We went over results of her testing. Prior to leaving the room the patient asked if she could have something for anxiety. She said she had been dealing with a great deal of stress recently due to her son. He is in his 50's and has bipolar disorder, poorly treated. Currently she has no idea where he is and it causes her stress. She cannot sleep sometimes, up for several hours at night. She talked with her PCP about this issue, they prescribed her a daily medication (assuming SSRI) but she did not take it after reading that it can cause suicide. Explained to her that the adverse effect of increased suicide was generally in teen agers and those who were already suicidal. I said that the SSRI was an appropriate first line of treatment. She was requesting something that she could take as needed. Discussed that benzodiazepines can help but can be addicting, should only be used as needed. Provided her with a short term script for Ativan 0.5mg daily PRN but told her that she would need to follow up with her PCP. Recommended that she take the SSRI that was prescribed. Review of Systems: Constitutional: No fever, No chills, No sweats, No weight loss, No weakness , No fatigue, No problem reported Eyes: No worsening of vision, No eye pain, No redness, No discharge, No diplopia, No problem reported ENT: No hearing loss, No unusual epistaxis, No nasal symptoms, No sore throat, No tinnitus, No dental problems, No trouble swallowing, No problem reported Respiratory: No cough, No sputum, No wheezing, No shortness of breath, No dyspnea on exertion, No dyspnea at rest, No hemoptysis, No problem reported Cardiovascular: No chest pain, No orthopnea, No PND, No edema, No claudication, No palpitations, No problem reported Abdomen: No pain, No nausea, No vomiting, No diarrhea, No constipation, No GI bleeding, No problem reported Musculoskeletal: No joint pain, No muscle pain, No swelling, No calf pain, No problem reported Genitourinary - Female: No dysuria, No urinary frequency, No urinary urgency , No urinary incontinence, No urinary retention, No hematuria Neurologic: No memory loss, No paralysis, No weakness, No numbness/tingling , No vertigo, No balance problems, No problem reported Psychiatric: + anxiety, + insomnia (intermittently), No depression symptoms , No anhedonism, No substance abuse, No problem reported Endocrine: No fatigue, No excessive thirst, No excessive urination, No problem reported Hematologic / Lymphatic: No abnormal bleeding/bruising, No clotting problems , No swollen lymph nodes, No night sweats, No problem reported Integumentary: No rash, No itch, No new/changing skin lesions, No color change, No bleeding, No problem reported Physical Exam: General Appearance: WD/WN, no apparent distress Eyes: normal inspection, EOMI, sclerae normal ENT: normal ENT inspection, hearing grossly normal, pharynx normal Neck: supple, no adenopathy, no JVD, trachea midline Respiratory/Chest: chest non-tender, lungs clear, normal breath sounds, no respiratory distress, no accessory muscle use Cardiovascular: regular rate, rhythm, no edema, no gallop, no JVD, no murmur , normal peripheral pulses Abdomen / GI: normal bowel sounds, non tender, soft, no organomegaly Extremities: normal inspection, no calf tenderness, normal capillary refill , no pedal edema, normal range of motion, pelvis stable 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 Lugo recommends aspirin not a candidate for high dose statin therapy due to age, low LDL at baseline d/c to home with PCP follow up HTN: stable, continue home meds as BP allows Generalized anxiety disorder recommend patient start taking SSRI as prescribed by her PCP provided with script for Ativan 0.5mg PO daily PRN for increased levels of anxiety discussed danger of benzodiazepines with regards to addictive qualities and sedation she said she understood, only planning on using if she really needs relief recommend follow up with PCP to discuss further Total Time Spent: Greater than 30 minutes This includes examination of the patient, discharge planning, medication reconciliation, and communication with other providers. Discharge Instructions Please refer to the electronic Patient Visit Report (Discharge Instructions) for additional information. Follow-Up Dr. Ma in one week Additional Copies To Nick Ma M.D.
--- NOTE | 2018-05-01 14:41 | Pharmacy Progress Note ---
Pharmacist Post D/C Phone Note Date of phone call: May 01, 2018. Individual with whom pharmacist spoke to: Patient The following questions were reviewed during the phone call with responses listed below each: Can you tell me the medications that you are currently taking as well as when and how you take each medication? - Medications Dose Route/Sig Max Daily Dose Days Date Category Ativan (Lorazepam) 0.5 Mg Tab 0.5 Mg PO DAILY PRN 04/29/18 Rx -[id number]-c- - - -(--P-[id number]-v-x-z-o-l-e--)- -2-0- -M-g- -C-a-p-c-r- - - -2-0- -M-g- -P-O- -P-R-N- Does not take -8--/--3--/--1-7- -B-y-u-o-r-t-e-d- Aspirin Ec (Aspirin) 81 Mg Tab 81 Mg PO QAM 04/19/17 Reported Flonase Allergy Relief (Fluticasone Propionate (Nasal)) 50 Mcg/Act Spr 2 Sprays RADHA BID 04/19/17 Reported Benicar Hct 20/12.5 (Olmesartan/HCTZ) Tab 1 Tab PO QAM 03/15/15 Reported Bystolic (Nebivolol Hcl) 5 Mg Tab 5 Mg PO QPM 02/05/14 Reported When have you missed any doses of your medications? - n/a; She is taking ASA as prescribed What side effects are you having from your medications? - n/a; noted low BP on home cuff today (97/40s) but not feeling dizzy, etc. I encouraged her to continue checking, go to a store that has one, and monitor for symptoms. She told me she has noticed this in the past. What questions do you have about your medications? - n/a What problems are you having obtaining your medications? - Just picked up Ativan today because she[place] 20 [place] from a pharmacy When is your next appointment with your primary care doctor? - 1st week of May w/ Dr. Ma's office Additional comments: - Patient reported she was pleased with her care and felt that everything was taken care of - Reports she almost never takes Prilosec. Instead, uses Tums occasionally if she develops heartburn. I tried to remove this from her list but was unable to as she only has one encounter. As per the Pharmacist Discharge Counseling for Stroke Patients Protocol, this phone call has been completed within 72 hours of discharge. Thank you for allowing us to be involved in the care of this patient.
== END 2018-04-29 15:17 | disposition home or self-care (01) ==
LOC: C.2T 17:34
PROVIDERS: ADMIT Family Medicine; ATTEND Internal Medicine
DX: G45.9 Transient cerebral ischemic attack, unspecified (principal); F41.1 Generalized anxiety disorder; I44.7 Left bundle-branch block, unspecified; I10 Essential (primary) hypertension; K21.9 Gastro-esophageal reflux disease without esophagitis; G62.9 Polyneuropathy, unspecified; Z79.82 Long term (current) use of aspirin; Z90.710 Acquired absence of both cervix and uterus; Z90.49 Acquired absence of other specified parts of digestive tract; Z96.641 Presence of right artificial hip joint; Z96.652 Presence of left artificial knee joint